=== PATIENT | male | born 1985 | race Caucasian/White ===

== ENCOUNTER 2021-02-08 10:38 | Emergency (ER) | payer OTHER ==
[2021-02-08 10:47] VITALS: BP 128/67; PULSE 105; RESP 18; TEMP 101
[2021-02-08] MEDS ORDERED: ONDANSETRON 4 MG/2 ML VIAL IVP STA (11:02)
[2021-02-08] MEDS ORDERED: ACETAMINOPHEN TAB 500 MG TAB PO STA (11:26)
[2021-02-08] MEDS ORDERED: BAMLANIVIMAB (EUA) 700 MG, ETESEVIMAB (EUA) 1,400 MG in SODIUM CHLORIDE 0.9% 100 ML IVPB ONE (11:30)
[2021-02-08] MEDS ORDERED: SODIUM CHLORIDE 0.9% 50 ML IVPB ONE (11:30)
--- NOTE | 2021-02-08 12:15 | ED ---
General Adult HPI - General Chief complaint: Shortness of Breath Stated complaint: Covid exposure/symptoms Time Seen by Provider: 02/08/21 10:40 Source: patient, RN notes reviewed Mode of arrival: ambulatory Limitations: no limitations - History of Present Illness Initial comments: This a 35-year-old male presents emergency Department chief complaint of covid19. Patient states he test positive outpatient. Patient states he is a known diabetic. Patient had fever cough congestion bodyaches nausea, feels dehydrated. Patient's blood sugar has been slightly elevated. Patient offers no other associated complaints. - Related Data Home Medications Medication Instructions Recorded Confirmed INSULIN LISPRO (For Pump) [humaLOG 0.01 units SQ-PUMP CONTINUOUS 02/08/21 02/08/21 (For Pump)] Allergies Allergy/AdvReac Type Severity Reaction Status Date / Time amoxicillin AdvReac Rash/Hives Verified 02/08/21 11:04 Penicillins AdvReac Rash/Hives Verified 02/08/21 11:04 Review of Systems ROS Statement: Those systems with pertinent positive or pertinent negative responses have been documented in the HPI. ROS Other: All systems not noted in ROS Statement are negative. Past Medical History Past Medical History: Diabetes Mellitus History of Any Multi-Drug Resistant Organisms: None Reported Past Surgical History: No Surgical Hx Reported Past Psychological History: No Psychological Hx Reported Smoking Status: Never smoker Past Alcohol Use History: Occasional Past Drug Use History: None Reported General Exam Limitations: no limitations General appearance: alert, in no apparent distress Head exam: Present: atraumatic, normocephalic, normal inspection Eye exam: Present: normal appearance, PERRL, EOMI. Absent: scleral icterus, conjunctival injection, periorbital swelling ENT exam: Present: normal exam, mucous membranes moist Neck exam: Present: normal inspection, full ROM. Absent: tenderness, meningismus, lymphadenopathy Respiratory exam: Present: normal lung sounds bilaterally. Absent: respiratory distress, wheezes, rales, rhonchi, stridor Cardiovascular Exam: Present: normal rhythm, tachycardia, normal heart sounds. Absent: systolic murmur, diastolic murmur, rubs, gallop, clicks Course Vital Signs 02/08/21 10:44 Temperature 101 F H Pulse Rate 105 H Respiratory 18 Rate Blood Pressure 128/67 O2 Sat by Pulse 96 Oximetry Medical Decision Making - Medical Decision Making Patient received monoclonal antibodies will be discharged in stable condition re turn parameters discussed. Disposition Clinical Impression: COVID-19 Disposition: HOME SELF-CARE Condition: Stable Instructions (If sedation given, give patient instructions): Coronavirus Disease 2019 (COVID-19) Additional Instructions: Please return to the Emergency Department if symptoms worsen or any other concerns. Is patient prescribed a controlled substance at d/c from ED?: No Referrals: Nonstaff,Physician [Primary Care Provider] - 1-2 days Time of Disposition: 12:15
== END 2021-02-08 13:09 | disposition home or self-care (01) ==
LOC: EC 10:38
DX: U07.1 COVID-19 (principal); E11.9 Type 2 diabetes mellitus without complications; Z79.4 Long term (current) use of insulin
CPT/HCPCS: 99283; 96374; J2405; J3490; 96360; 96361; 99284